=== PATIENT | male | born 1935 | race Caucasian/White ===

== ENCOUNTER 2021-11-25 11:07 | Emergency (ER) | payer OTHER ==
[2021-11-25 11:31] VITALS: BP 102/75; TEMP 98.3; BMI 24.7
[2021-11-25 14:48] VITALS: PULSE 88
== END 2021-11-25 14:49 | disposition home or self-care (01) ==
LOC: JER 11:07
DX: J11.1 Influenza due to unidentified influenza virus with other respiratory manifestations (principal)
CPT/HCPCS: 0241U-QW; 71046-TC-FY; 99284-25

== ENCOUNTER 2022-11-17 18:12 | Emergency (ER) | payer OTHER ==
[2022-11-17 18:25] VITALS: RESP 16; TEMP 98.2; BMI 25.4
[2022-11-17] MEDS ORDERED: ACETAMINOPHEN 500 MG TABLET (FP) PO ONE (18:58)
[2022-11-17] MEDS ORDERED: ACETAMINOPHEN 500 MG TABLET (FP) ONE (19:24)
[2022-11-17] MEDS ORDERED: AMOX TR/POT CLAV 500MG/125MG TABLETS (FP) PO ONE (23:33)
[2022-11-17] MEDS ORDERED: AMOX TR/POT CLAV 500MG/125MG TABLETS (FP) ONE (23:42)
[2022-11-17 23:47] VITALS: BP 120/66; PULSE 67
== END 2022-11-17 23:57 | disposition home or self-care (01) ==
LOC: JER 18:12 → JERFT 18:12
PROC: 0HQLXZZ Repair Left Lower Leg Skin, External Approach (ICD-10-PCS; principal; 2022-11-17)
DX: S91.212A Laceration without foreign body of left great toe with damage to nail, initial encounter (principal); W23.0XXA Caught, crushed, jammed, or pinched between moving objects, initial encounter; Y93.9 Activity, unspecified; Y92.9 Unspecified place or not applicable
CPT/HCPCS: 73630-TC-LT; 99283-25

== ENCOUNTER 2022-11-19 10:45 | Emergency (ER) | payer OTHER ==
[2022-11-19 10:51] VITALS: BP 109/63; RESP 80; TEMP 98; BMI 25.4
== END 2022-11-19 12:16 | disposition home or self-care (01) ==
LOC: JERFT 10:45
DX: S91.21 Laceration without foreign body of toe with damage to nail (principal); E11.9 Type 2 diabetes mellitus without complications; W20.8XXD Other cause of strike by thrown, projected or falling object, subsequent encounter
CPT/HCPCS: 99282-25

== ENCOUNTER 2023-01-15 19:16 | Emergency (ER) | payer OTHER ==
[2023-01-15 19:41] VITALS: PULSE 80; RESP 18; TEMP 98.5; BMI 23.3
[2023-01-15] MEDS ORDERED: DEXAMETHASONE 4 MG TABLET (FP) PO ONE (20:23)
[2023-01-15] MEDS ORDERED: ALBUTEROL SO4 2.5/IPRATROPIUM 0.5 INH SOL 3 ML VIAL.NEB. NEB ONE ×2 (20:55→21:02)
[2023-01-15 22:06] VITALS: BP 103/71
== END 2023-01-15 22:07 | disposition home or self-care (01) ==
LOC: JER 19:16
PROC: 3E0F7GC Introduction of Other Therapeutic Substance into Respiratory Tract, Via Natural or Artificial Opening (ICD-10-PCS; principal; 2023-01-15)
DX: T78.1XXA Other adverse food reactions, not elsewhere classified, initial encounter (principal); R07.89 Other chest pain; R06.02 Shortness of breath
CPT/HCPCS: 94640; 99283-25